=== PATIENT | male | born 1965 | race Caucasian/White ===

== ENCOUNTER 2023-04-26 09:24 | Emergency (ER) | payer OTHER, SELFPAY ==
[2023-04-26 09:25] VITALS: BP 149/94; PULSE 74; RESP 16; TEMP 36.4; O2SAT 99; BMI 29.7
--- NOTE | 2023-04-26 09:29 | NURSING ---
NO OLD EKGS
--- NOTE | 2023-04-26 09:34 | RAD_ITS ---
STUDY: X-RAY CHEST REASON FOR EXAM: Male, 57 years old. chest pain TECHNIQUE: Single AP portable view of the chest. COMPARISON: None. FINDINGS: The lungs are clear and expanded. There is no demonstrated pleural abnormality. Normal size heart. Normal mediastinum and sadie. Normal visualized pulmonary arteries. Normal visualized aortic arch and descending thoracic aorta. Normal visualized thoracic spine. Normal visualized ribs, clavicles, and shoulders. There is no demonstrated abnormality of the visualized soft tissue structures of the upper abdomen. RAD/Chest 1 View (Portable) IMPRESSION: Normal x-ray examination of the chest. Electronically Signed: Carmelo Mares MD at 10:00 EDT ,
--- NOTE | 2023-04-26 09:45 | EKG12_ITS ---
Test Reason : CP Blood Pressure : / mmHG Vent. Rate : 074 BPM Atrial Rate : 074 BPM P-R Int : 180 ms QRS Dur : 104 ms QT Int : 376 ms P-R-T Axes : 062 137 053 degrees QTc Int : 417 ms Normal sinus rhythm Right axis deviation Abnormal ECG Confirmed by MILES PORTER, LALO ([id number]), editor at large ESME GLOVER ([id number]) on 04/29/2023 11:40:28 AM Referred By: JOSÉ LUIS Confirmed By:ALICIA AQUINO MD
[2023-04-26] MEDS: Aspirin 81 MG TAB.CHEW 324 MG PO (09:47)
--- NOTE | 2023-04-26 09:58 | ED.VIS.CHEST ---
HPI History of Present Illness Chief Complaint: Chest Pain Informant: patient and spouse/S.O. Onset/Context/Timing Onset: Today and Hours Activity at onset: gradual Timing: Continuous Quality: Positive for Aching and Dull Location: Right Parasternal and Left Parasternal Current Severity: Mild Maximum Severity: Mild Worsened By: Breathing; Not Worsened By Exertion Relieved By: Nothing Associated Symptoms: Negative for Nausea, Vomiting, Diaphoresis, Dyspnea, Cough, Fever, Lightheadedness, Acid Reflux or Palpitations Narrative Narrative: 57-year-old male noticing a past medical history. No history of cardiac disease. No history of DVT or PE. Said he awoke this morning between 6 and 7 which is his normal time to get up and he noticed he had parasternal chest discomfort. Worse with deep breathing. Radiates to his neck. No prior history. No cardiac history no history of DVT or PE. No travel he had his he recently drove in from [facility] about 3-[address]. Denies any hemoptysis. No leg pain or swelling. He is quite active he walks several miles on almost a daily basis and has had no recent exertional chest pain or exertional dyspnea. Does not know that he did anything to strain his chest wall injury. Prior Similar Symptoms: No Recent Illness/Hospitalization: No CVD Risk Factors: Negative for Hypertension, Diabetes, Family History 1' </=55 or Smoking PE Risk Factors: Positive for Recent Travel/Surgery; Negative for Recent Immobilization, Prior DVT or PE, Cancer or OCP + Smoking + >/=35 TAD Risk Factors: Negative for Marfan's Syndrome, Hypertension or Family History PFSH PFSH Medical History no medical history no medical history Allergy/AdvReac Type Severity Reaction Status Date / Time No Known Allergies Allergy Verified 04/26/23 09:39 Social History Smoking Status: Never smoker ROS ROS ED ROS Narrative No recent illness. Chest discomfort today only. Review of Systems ROS Unobtainable: Denies due to encephalopathy Constitutional Constitutional ED: Denies chills or fever(s) Eyes Eyes: Reports none ENT ENT ED: Denies ear pain Cardiovascular Cardiovascular: Reports as per HPI and chest pain; Denies palpitations or racing heartbeat Respiratory/Chest Respiratory/Chest: Denies cough, dyspnea or dyspnea on exertion Gastrointestinal Gastrointestinal: Denies abdominal pain Genitourinary Genitourinary ED: Denies dysuria or hematuria Musculoskeletal Musculoskeletal: Denies arthralgias or back pain Integumentary Denies abscess Neurologic Neurologic: Denies headache(s) Endocrine Endocrinology: Denies cold intolerance Hematologic/Lymphatic Hematologic/Lymphatic: Denies easy bleeding or easy bruising Allergic/Immunologic Allergic/Immunologic ED: Denies mouth swelling or tongue swelling EXAM Physical Exam Narrative Exam Narrative: Well-appearing 57-year-old male. Vital signs stable afebrile. Pulse ox 99% on room air no signs hypoxia. He is in no distress. at bedside. H EENT exam unremarkable. Neck nontender no JVD. No lymphadenopathy. Lungs clear to auscultation bilaterally. Heart regular rhythm no murmur. Rate about 70. Chest wall he does have reproducible chest wall discomfort on both sides of his sternum consistent with a costochondritis. There is no ecchymosis or bruising. No crepitance or subcu air. No signs of trauma. There is definitely reproducible pain. Abdomen is soft and nontender normal bowel sounds no peritoneal signs. Moving all 4 extremities. Calves are nontender without edema or cords. Equal symmetrical radial pulses. Back nontender. Neurologic exam normal. Awake and alert. Moving all 4 extremities. Const Vital Signs: 04/26/23 09:25 04/26/23 09:46 04/26/23 09:47 Temperature 97.5 F L Temperature Source Temporal Pulse Rate 74 Respiratory Rate 16 Respiratory Effort Normal Non-Labored Respiratory Pattern Normal Blood Pressure 149/94 H Blood Pressure Mean 112 Pulse Ox 99 Oxygen Delivery Method Room Air Room Air Positive well nourished and well developed; Negative for obese, cachectic, contractures or unkempt General Appearance ED: well developed and NAD; Negative for unkempt, cachectic, contractures or pallor Nutritional Appearance: Negative for cachectic or obese HEENT Reports moist mucous membranes normocephalic and atraumatic; Negative for trauma or tenderness Eyes PERRL and EOMs intact bilaterally General Eye ED: Negative for pale conjunctiva, scleral icterus or other Neck no lymphadenopathy, supple and no JVD Chest Wall inspection of chest normal; Negative for palpation of chest normal Chest Narrative: Reproducible chest wall discomfort parasternal consistent with a costochondritis. Or chest wall strain. Chest: tenderness Resp normal respiratory effort and clear to auscultation bilaterally Effort and Inspection: Negative for respiratory distress Auscultation: Negative for rales, rhonchi or wheezes Cardio regular rate, regular rhythm, S1 normal heart sound, S2 normal heart sound and no murmurs Rate: Negative for bradycardia or tachycardic Rhythm: Negative for abnormal rhythm Peripheral Pulses: pulses 2+ throughout GI normal to inspection, nondistended, normoactive bowel sounds, soft to palpation, non-tender, non-distended and no masses Auscultation: Negative for hyperactive bowel sounds Palpation: Negative for splenomegaly Back/Spine no CVA tenderness and no thoracic nor lumbar tenderness General Back: Negative for CVA tenderness Cervical Spine: Negative for cervical spine tenderness Extremity normal to inspection General Extremety ED: Negative for edema, pulses abnormal or tenderness General Extremity: Negative for edema or pulses abnormal Neuro oriented x3 and CN's II-XII intact bilaterally Sensorium / Orientation: awake, alert, oriented to person, oriented to place and oriented to time; Negative for confused, lethargic or stuporous Motor Exam: strength 5/5 throughout Psych mental status grossly normal Appearance: Negative for unkempt Attitude: No agitated Mood & Affect: Negative for depressed, anxious or tearful Skin no rashes or lesions noted and no wounds General Skin Exam: Negative for jaundice or pallor Rashes: No rashes noted Trauma: Negative for abrasion or laceration Heart Score History: Slightly/Non-Suspicious ECG: Normal Age: >45 - <65 years Risk Factors: No Risk Factors Troponin: </= Normal Limit Score: 1 MDM MDM MDM Narrative Medical decision making narrative: 57-year-old gentleman with chest discomfort that is pleuritic. It is reproducible on exam it appears to be chest wall pain. He will undergo a cardiac work-up. He has no cardiac history or significant risk factors. He is a non-smoker. He is quite active and walks daily and has not had any exertional chest pain or dyspnea recently. He is never had a DVT or PE and no significant risk factors other than recent travel that was under 4 hours. He is got no leg pain or swelling. No hemoptysis. Clinically on exam I think this is reproducible chest wall pain will rule out cardiac etiology and rule out PE. There is no reason to believe this to be a dissection or esophageal rupture nor pneumothorax. Repeat exam at 10:47 AM patient doing well. Exam benign. We went over all his test results. Clinically and historically this does not sound cardiac. I do not think he needs a second troponin. He has reproducible pain. He has no cardiac risk factors and has had no exertional symptoms. We ruled out the PE with a D-dimer. There is no signs of dissection either. He and his are comfortable being discharged back to his parents home. Return if worse. Motrin and cool compresses to his chest to help with possible costochondritis. Or chest wall strain. History & Record Review Discussion w/independent historian: Patient and Family Additional record(s) reviewed:: No prior records Lab Data Attestation: I reviewed the patient's lab results. Lab results narrative: Labs unremarkable. CBC white count 13.5 H&H is 16 and 46. Platelets 193. D-dimer is less than 0.27. Electrolytes unremarkable gap of 5. Normal BUN and creatinine of 17 and 1.1. Glucose 98. Troponin 5. Labs: Laboratory Results - last 24 hr 04/26/23 09:35 WBC 13.5 H RBC 4.88 Hgb 16.0 Hct 46.1 MCV 94.5 H MCH 32.8 H MCHC 34.7 RDW Std Deviation 41.5 RDW Coeff of Sha 11.9 Plt Count 193 MPV 9.1 Immature Gran % (Auto) 0.400 Neut % (Auto) 75.6 H Lymph % (Auto) 14.1 L [place] % (Auto) 8.4 Eos % (Auto) 1.1 Baso % (Auto) 0.4 Absolute Neuts (auto) 10.2 H Absolute Lymphs (auto) 1.91 Nucleated RBC % 0 D-Dimer Quant (PE/DVT) < 0.27 L Sodium 140 Potassium 3.8 Chloride 107 Carbon Dioxide 28.0 Anion Gap 5 BUN 17 Creatinine 1.14 Estim Creat Clear Calc 62.96 Est GFR (MDRD) Af Amer 84 Est GFR (MDRD) Non-Af 70 BUN/Creatinine Ratio 14.9 Glucose 98 Calcium 9.3 Troponin I High Sens 5 Radiography Chest X-Ray - ED: 1 View, Read by ED Physician, Read by Radiologist, Heart, Lungs, Mediastinum, Bony Structures, No Acute Disease and Chronic Changes Diagnostic Testing: Clinical Impression(s) from Imaging Studies Chest X-Ray 04/26/23 09:34 IMPRESSION: Normal x-ray examination of the chest. Electronically Signed: Carmelo Mares MD at 10:00 EDT , Chest x-ray, portable, single view interpreted both by myself and radiologist as no acute abnormality. Normal cardiac silhouette, mediastinum and lung miles. No gross bony abnormalities. Rhythm Strip Rhythm Strip: Sinus Rhythm Rate: 74 Ectopy: None EKG Initial EKG: Attestation: I personally reviewed and interpreted this EKG as follows: Interpretation: Sinus Rhythm and No Acute Injury Pattern Comments: Normal sinus rhythm rate of 74 no acute signs of NC or ischemia. No signs of pericarditis. No old EKG available for comparison. Prior: No Prior Discharge Plan Triage Chief Complaint: Chest Pain ED Provider: Carter Nice Dx/Rx/DC Orders Clinical Impression: Acute chest wall pain, Acute costochondritis Instructions: Costochondritis Primary Care Provider: Teresa Justin,Out of Referrals: Teresa Justin,Out of [Primary Care Provider] - Activity Restrictions/Additional Instructions: Your labs, EKG and chest x-ray were unremarkable. This appears to be chest wall pain either from chest wall strain or inflammation called costochondritis. Cool compresses or ice to your chest. Motrin 3-4 times a day. Tylenol as needed in between. This should progressively improve if not follow-up to have it reevaluated. If you are feeling a lot worse return but there is no signs of a heart attack, blood clot or other significant abnormalities. Disposition Disposition: Home, Self Care
[2023-04-26 10:00] LABS: Absolute Lymphocyte Count 1.91 X10^3/uL (0.83-4.51); Absolute Neutrophil Count 10.2 X10^3/uL (2.0-7.7); Basophil# 0.06 X10^3/uL; Basophil% 0.4 % (0-1); Eosinophil# 0.15 X10^3/uL; Eosinophils% 1.1 % (0-5); Hematocrit 46.1 % (40-54); Lymphocyte # 1.91 X10^3/ul (0.83-4.51); Lymphocyte % 14.1 % (19-41); Mean Corp Hgb Conc 34.7 g/dL (32-36); Mean Corpuscular Hgb 32.8 pg (27.0-32.0); Mean Corpuscular Volume 94.5 fL (80-94); Mean Platelet Vol. 9.1 fl (6.2-12.0); Monocyte# 1.14 X10^3/uL; Monocyte% 8.4 % (0-10); NRBC Flagged by Analyzer 0 % (0-5); Neutrophil # 10.21 X10^3/uL (2.7-7.7); Neutrophil % 75.6 % (47-70); Platelet Count 193 K/mm3 (150-450); RBC Distribution Width CV 11.9 % (11.6-14.6); RBC Distribution Width SD 41.5 fl (35.1-43.9); Red Blood Count 4.88 M/mm3 (4.6-6.2); White Blood Count 13.5 K/mm3 (4.4-11.0)
[2023-04-26 10:03] LABS: Anion Gap 5 (5-15); BUN 17 mg/dL (7-18); BUN/Creat Ratio 14.9 RATIO (10-20); Calcium,Total 9.3 mg/dL (8.5-10.1); Chloride 107 mmol/L (98-107); Creatinine, Serum 1.14 mg/dL (0.70-1.30); EST Glomerular Filtration Rate 70 mL/min (>60); Est Glom Filt Rate - Afr Amer 84 mL/min (>60); Estimated Creatinine Clearance 62.96 ml/min; Glucose 98 mg/dL (74-106); Potassium 3.8 mmol/L (3.5-5.1); Sodium Level 140 mmol/L (136-145); Troponin-I HS (w/2H Reflex) 5 pg/mL (3.0-78.0)
[2023-04-26 10:30] LABS: D-Dimer Quantitative (DVT/PE) < 0.27 FEU/ug/m (0.27-0.49)
[2023-04-26 10:54] VITALS: BP 125/80; PULSE 69; RESP 18; O2SAT 97
[2023-04-26 11:42] LABS: Reflex Troponin-HS? (from REC) Y
== END 2023-04-26 10:57 | disposition home or self-care (01) ==
PROVIDERS: Emergency Provider Emergency Medicine; Visit Provider Emergency Medicine
DX: R07.89 Other chest pain (principal); M94.0 Chondrocostal junction syndrome [Tietze]
CPT/HCPCS: 71045; 80048; 84484; 85025; 85379; 93005; 99285; A4216